=== PATIENT | male | born 1950 | race Caucasian/White ===

== ENCOUNTER 2016-11-02 | Inpatient (IN) | payer MEDICARE ==
--- NOTE | ~2016-11-02 | PA ---
Unit #: [id number] #: [id number] Patient: [facility]ARTHUR [id number] [facility] [address] [place] [address] [id number] MR#: [id number] NAME: MARY MCARTHUR ROOM: P180 Age: 66 Sex: M Admission Date: 11/02/2016 : 1950 Date of Assessment: Attending Physician: Ainsley Mccray M.D. Admitting Physician: Ainsley Mccray M.D. PSYCHIATRIC ASSESSMENT IDENTIFYING DATA Hector is a 66-year-old, , disabled, white male, who is known to us from previous encounter, is a resident of [place], [place] and was self-referred to the hospital on a voluntary basis. CHIEF COMPLAINT "I'm just tired a man. I'm detoxing. I'm just tired." HISTORY OF PRESENT ILLNESS Hector is a 66-year-old white male, who was self hospitalized and seemed to be unkempt, disheveled, anxious, withdrawn, in acute distress and discomfort, and he stated "I'm just ready to jump off a bridge." He reports that he is detoxing from heroin, stating that he has been using a gram of IV heroin on daily basis. The last use was 24 hours ago and reports currently having significant withdrawal symptoms with increasing anxiety, depression, irritability, restlessness, inability to function or perform activities of daily living, feelings of hopelessness and helplessness, and suicidal ideation, intent, and plan and as such, recommendation for inpatient level of care for safety and stabilization was made. SUBSTANCE ABUSE HISTORY The patient reports opioids particularly IV heroin to be his drug of choice and reports that he has been using a gram of IV heroin on daily basis. PAST PSYCHIATRIC HISTORY The patient has had history of multiple inpatient chemical dependency and psychiatric treatments at [facility]. Review of the medical records indicate that he has been diagnosed and treated for mood disorder, the line of bipolar and has been on Seroquel but has history of poor compliance at all forms of outpatient treatment. PAST MEDICAL HISTORY Asthma. ALLERGIES No known medication allergies. PERSONAL AND SOCIAL HISTORY A 66-year-old white male, who reports that he is single, unemployed, and homeless and has poor social support system. Unit #: [id number] #: [id number] Patient: MARY MCARTHUR MENTAL STATUS EXAMINATION An elderly white male, who was casually dressed with fair personal hygiene, appears to be in no acute distress or discomfort. He was awake and alert on interaction with intact orientation to time, place, and person. His mood was anxious and depressed with a congruent affect. His speech was slow and restricted in content. His thought processes were disorganized with some looseness of associations and flight of ideas and suicidal ideations. His insight and judgment remain significantly impaired. DIAGNOSTIC IMPRESSION Psychiatric: Depressive disorder, recurrent, moderate, without psychotic features. Opioid dependence: Moderate, and acute withdrawals. Medical: COPD. Stressors: Moderate, psychosocial stressors. TREATMENT PLAN 1. The patient has presented with history of substance abuse and mood disorder, and has been decompensating and will need inpatient hospitalization for detoxification, safety, and stabilization. We will start him back on his home medications. We will adjust the medications and monitor response. 2. Supportive therapy was provided to the patient. 3. Safe, structured, and nourishing environment will be reported. ESTIMATED LENGTH OF STAY 5 to 7 days. ABILITY TO HELP SELF Limited. WILLINGNESS TO HELP SELF The patient appears to be willing to help self. STRENGTHS 1. Communicative. 2. Cooperative. PROBLEM LIST 1. Chronic dysphoric symptoms. 2. Chronic chemical dependency. 3. Poor social support system. DISCHARGE CRITERIA This will be contingent upon the patient's ability to show resolution of his depression and anxiety and his ability to stay safe to himself, particularly after discharge from the hospital. Dictated by... Ainsley Mccray M.D. Unit #: [id number] #: [id number] Patient: MARY MCARTHUR IAA/modl TD: 11/02/2016 13:14 JOB #: [id number] PSYCHIATRIC ASSESSMENT Page 1 of 1 X Ainsley Mccray MD PSYCHIATRIC ASSESSMENT
--- NOTE | ~2016-11-02 | PN ---
Unit #: [id number] #: [id number] Patient: MARY YOUNG [id number] [facility] [address] [place] [address] [id number] MR#: [id number] NAME: MARY YOUNG ROOM: P180 Age: 66 Sex: M Admission Date: 11/02/2016 : 1950 Attending Physician: Ainsley Mccray M.D. Admitting Physician: Ainsley Mccray M.D. Primary Care Physician: Nalini Doctor Not In System [facility] PROGRESS NOTES DATE 11/04/2016 DISCUSSION Mr. Young is a 66-year-old, white male with opioid dependence and mood disorder who seen today and chart was reviewed and case was discussed with the staff. He was noticeably unkempt, disheveled, anxious, withdrawn, laying in his bed, and seclusive to himself unable to carry on meaningful conversation appears to be in some distress and discomfort as he goes through detox. Meanwhile he has been taking medications and tolerating them fairly well with no reported. MENTAL STATUS EXAM An elderly white male who was casually dressed with fair personal hygiene, appears to be in no acute distress or discomfort. He was awake and alert on interaction with intact orientation. His mood was anxious with congruent affect. His speech was slow and goal directed. He denies any current suicidal or homicidal ideation. Also, denies any auditory or visual hallucinations. His insight and judgement remains slightly impaired. TREATMENT PLAN 1. We will continue him on his current medications and treatment protocol (1) detox medication. We will monitor his response and make further adjustments as needed. 2. We will continue to follow up. Dictated by... Rashawn Marcus/rosalind TD: 11/05/2016 01:44 JOB #: [id number] Unit #: [id number] #: [id number] Patient: MARY YOUNG PROGRESS NOTES Page 1 of 1 X Ainsley Mccray MD X PROGRESS NOTE
--- NOTE | ~2016-11-02 | HP ---
Unit #: [id number] #: [id number] Patient: MARY MCARTHUR [id number] [place] [address] [id number] MR#: [id number] NAME: MARY MCARTHUR ROOM: P180 Age: 66 Sex: M Admission Date: 11/02/2016 : 1950 Attending Physician: Ainsley Mccray M.D. Admitting Physician: Ainsley Mccray M.D. Primary Care Physician: Generic Doctor Not In System HISTORY AND PHYSICAL HISTORY OF PRESENT ILLNESS The patient is a 66-year-old male, admitted to [facility] on 11/02/2016 to withdraw from heroin. PAST MEDICAL HISTORY 1. Chronic obstructive pulmonary disease. 2. Hepatitis C. PAST SURGICAL HISTORY Recent I and D of abscess on his spine. ALLERGIES No known drug allergies. SOCIAL HISTORY The patient is unemployed and homeless. He smokes [id number] cigarettes per day and uses one gram of heroin daily. FAMILY MEDICAL HISTORY Noncontributory. REVIEW OF SYSTEMS CONSTITUTIONAL: No fever or chills. HEENT: Denies any sore throat, ear pain or runny nose. CARDIOVASCULAR: Denies chest pain, irregular heart rhythm or palpitations. CHEST: Denies shortness of breath or cough. No hemoptysis. GASTROINTESTINAL: Denies nausea, vomiting, diarrhea or chronic constipation. ENDOCRINE: Denies history of increased thirst or urination. No recent significant weight loss or gain. GENITOURINARY: Denies dysuria, frequency, or hematuria. SKIN: Denies any rashes. HEMATOLOGIC: Denies history of increased bleeding or bruising. MUSCULOSKELETAL: Denies any hot, swollen joints. No generalized muscle pain. NEUROLOGIC: Denies problems with vision or speech. No frequent, severe headaches. No numbness, tingling or weakness in any extremities. Denies loss of bladder or bowel control. CURRENT MEDICATIONS Include: 1. Seroquel 2. Proventil Unit #: [id number] #: [id number] Patient: MARY MCARTHUR 3. Symbicort PHYSICAL EXAMINATION GENERAL: He is awake, alert, and oriented, and in no acute distress. VITAL SIGNS: Temperature 98.9, heart rate 83, respirations 18, and blood pressure 175/92. HEIGHT: 6 feet 0 inches. WEIGHT: 175 pounds. SKIN: He refused to let me examine his spine where he had an abscess removal. HEENT: Normocephalic. TMs not viewed. Oral and nasal passages clear. Conjunctivae clear. PERRLA. EOMs intact. NECK: Supple without lymphadenopathy or thyromegaly. HEART: Regular rate and rhythm without murmur. LUNGS: Clear. ABDOMEN: Soft, nontender. : Not done. EXTREMITIES: No evidence of cyanosis, clubbing or edema. Moves all without focal deficit. NEUROLOGICAL: Grossly within normal limits. Cranial Nerves: II: Visual stanford are intact. III, IV AND : Extraocular movements are intact. Pupils are equal, round and reactive to light. V: Facial sensation is grossly normal. VII: Facial movements and expression are normal. VIII: Auditory acuity grossly intact. IX, X: Uvula is midline. Phonation is normal. XI: Patient shrugs shoulders and turns head normally. XII: Tongue protrudes in the midline. Sensory and Motor Function: Sensory and motor sensation is grossly normal. Motor: moves all extremities well. Coordination: Gait is normal. Deep Tendon Reflexes: Intact. IMPRESSION 1. Psychiatric admission. 2. Heroin dependence. 3. Chronic obstructive pulmonary disease. 4. Hepatitis C. RECOMMENDATIONS Psychiatric, per psychiatrist. MEDICAL No contraindications to participating in facility's activities. MEDICAL PROGNOSIS Fair. MEDICAL CONDITION Stable. Dictated by... Radha Bowers/franc TD: 11/03/2016 05:51 Unit #: [id number] #: [id number] Patient: LYUBOVMARY JOB #: [id number] HISTORY AND PHYSICAL Page 1 of 1 X AILEEN DENTON APRN HISTORY AND PHYSICAL
--- NOTE | ~2016-11-02 | PN ---
Unit #: [id number] #: [id number] Patient: MARY YOUNG [id number] [facility] [address] [place] [address] [id number] MR#: [id number] NAME: MARY YOUNG ROOM: P180 Age: 66 Sex: M Admission Date: 11/02/2016 : 1950 Attending Physician: Ainsley Mccray M.D. Admitting Physician: Ainsley Mccray M.D. Primary Care Physician: Generic Doctor Not In System [facility] PROGRESS NOTES DATE OF SERVICE 11/07/2016 DISCUSSION Mr. Young is a 66-year-old white male with substance abuse and mood disorder who was seen today. Chart was reviewed and case was discussed with the staff. He has started getting agitated and irritable about wanting to leave, and this has been (1) __ behavioral pattern leading to relapses and poor outcomes. I told him that I was not comfortable with him leaving over the weekend, and he was not showing good insight into it and has been escalating to the point that I had to walk away from him. MENTAL STATUS EXAMINATION An elderly white male who is casually dressed with fair personal hygiene, appears to be in slight distress and discomfort. He was awake and alert on interaction with intact orientation. His mood is anxious with a congruent affect. Speech is slow and tangential. His insight and judgment remain significantly impaired. TREATMENT PLAN 1. We will continue him on his current medications and treatment protocol. We will monitor his response and make further adjustments as needed. 2. We will continue to follow up. Dictated by... Rashawn Marcus/roberto TD: 11/07/2016 13:19 JOB #: [id number] Unit #: [id number] #: [id number] Patient: MARY YOUNG [facility] PROGRESS NOTES Page 1 of 1 X Ainsley Mccray MD PROGRESS NOTE
--- NOTE | ~2016-11-02 | DS ---
Unit #: [id number] #: [id number] [facility]: [facility] [id number] [facility] [address] [place] [address] [id number] I MR#: [id number] NAME: MARY YOUNG ROOM: P174 Age: 66 Sex: M Admission Date: 11/02/2016 : 1950 Discharge Date: 11/09/2016 Attending Physician: Ainsley Mccray M.D. Primary Care Physician: Generic Doctor Not In System DISCHARGE SUMMARY IDENTIFYING DATA Mr. Young is a 66-year-old disabled white male who is known to us from previous encounter, is a resident of [place], [place] and was self-referred to the hospital on a voluntary basis. DISCHARGE DIAGNOSES Psychiatric: Major depressive disorder, recurrent, moderate, without psychotic features; opioid dependence, moderate and acute withdrawals. Medical: Chronic obstructive pulmonary disease. Stressors: Moderate psychosocial stressors. HISTORY OF PRESENT ILLNESS Please see initial psychiatric evaluation for details. PAST PSYCHIATRIC HISTORY Please see initial psychiatric evaluation for details. PAST MEDICAL HISTORY Please see initial psychiatric evaluation for details. HOSPITAL COURSE The patient was admitted to the adult chemical dependency unit at [facility] and was oriented to the hospital environment. Routine p.r.n. medications were initiated, and he was started on opioid detox protocol and was closely monitored. He was seen to be anxious and withdrawn for the first few days, he was rather seclusive to himself and was not actively participating much in treatment related activities and then he started coming out. Reported that he was feeling better and was insistent about wanting to go out and was refusing to accept any further treatment recommendations and was denying being a danger to self or anyone else and was not meeting criteria for involuntary psychiatric hospitalization, and as such, it was decided that he will be discharged home and will continue treatment on an outpatient basis. DISCHARGE MEDICATIONS None. DISCHARGE CONDITION Stable. PROGNOSIS Guarded. Unit #: [id number] #: [id number] Patient: MARY YOUNG Dictated by... Rashawn Marcus/wilil TD: 11/09/2016 22:59 JOB #: [id number] DISCHARGE SUMMARY Page 1 of 1 X Ainsley Mccray MD DISCHARGE SUMMARY
--- NOTE | ~2016-11-02 | PN ---
Unit #: [id number] #: [id number] Patient: MARY YOUNG [id number] [facility] [address] [place] [address] [id number] I MR#: [id number] NAME: MARY YOUNG ROOM: P174 Age: 66 Sex: M Admission Date: 11/02/2016 : 1950 Attending Physician: Ainsley Mccray M.D. Admitting Physician: Ainsley Mccray M.D. Primary Care Physician: Generic Doctor Not In System [facility] PROGRESS NOTES DATE OF SERVICE: 11/08/2016 SUBJECTIVE Mr. Young is a 66-year-old white male, who was seen today and chart was reviewed, and case was discussed with the staff. He has been anxious, withdrawn, rather seclusive to himself, though has been calm and cooperative and appears to be coming out of the detox without any complications and he has been taking medications and tolerating them fairly well with no reported side effects. MENTAL STATUS EXAMINATION Elderly white male who was casually dressed with fair personal hygiene, appears to be in no acute distress or discomfort. He was awake and alert on interaction with intact orientation. His mood was anxious with a congruent affect. He denies any suicidal or homicidal ideations. His insight and judgment remain slightly impaired. TREATMENT PLAN 1. We will continue him on his current treatment protocol. We will monitor his response to the medications and make further adjustments as needed. 2. We will continue to follow up. Dictated by... Rashawn Marcus/miguel TD: 11/10/2016 01:17 JOB #: [id number] [facility] PROGRESS NOTES Page 1 of 1 X Ainsley Mccray MD PROGRESS NOTE
--- NOTE | ~2016-11-02 | PN ---
Unit #: [id number] #: [id number] Patient: MARY YOUNG [id number] [facility] [address] [place] [address] [id number] MR#: [id number] NAME: MARY YOUNG ROOM: P180 Age: 66 Sex: M Admission Date: 11/02/2016 : 1950 Attending Physician: Ainsley Mccray M.D. Admitting Physician: Ainsley Mccray M.D. Primary Care Physician: Nalini Doctor Not In System [facility] PROGRESS NOTES DATE 11/06/2016 DISCUSSION Mr. Young is a 66-year-old white male with substance abuse and mood disorder who was seen today and chart was reviewed and case was discussed with the staff. He appears to be doing somewhat better and has been coming out of his room more and appears to be coming out of the detox without much complications. He has been taking medications and tolerating them fairly well with no reported side effects. MENTAL STATUS EXAMINATION An elderly white male who was casually dressed with fair personal hygiene and appears to be in no acute distress or discomfort. He was awake and alert on interaction with intact orientation. His mood was anxious with congruent affect. He denies any suicidal or homicidal ideation and also denies any auditory or visual hallucinations. His insight and judgement remains slightly impaired. TREATMENT PLAN 1. Will continue on his current medications and treatment protocol. Will monitor his response to the medications and make further adjustments as needed. 2. Will continue to follow up. Dictated by... Rashanw Marcus/lisbeth TD: 11/06/2016 15:37 JOB #: [id number] Unit #: [id number] #: [id number] Patient: MARY YOUNG [facility] PROGRESS NOTES Page 1 of 1 X Ainsley Mccray MD PROGRESS NOTE
--- NOTE | ~2016-11-02 | PN ---
Unit #: [id number] #: [id number] Patient: MARY YOUNG [id number] [facility] [address] [place] [address] [id number] MR#: [id number] NAME: MARY YOUNG ROOM: P180 Age: 66 Sex: M Admission Date: 11/02/2016 : 1950 Attending Physician: Ainsley Mccray M.D. Admitting Physician: Ainsley Mccray M.D. Primary Care Physician: Nalini Doctor Not In System [facility] PROGRESS NOTES DATE OF SERVICE 11/05/2016 DISCUSSION Mr. Young is a 66-year-old white male who was seen today. Chart was reviewed and case was discussed with the staff. He has been anxious, withdrawn though has not shown any agitation or irritability and has been cooperative with the treatment recommendations and has been taking the medications and tolerating them fairly well with no reported side effects. MENTAL STATUS EXAMINATION An elderly white male who is casually dressed with fair personal hygiene and appears to be in no acute distress or discomfort. The patient was awake and alert on interaction with intact orientation. His mood is anxious and depressed with congruent affect. He denies any suicidal or homicidal ideations. His insight and judgment remain slightly impaired. TREATMENT PLAN 1. We will continue him on his current medications and treatment protocol. We will monitor his response to the medications and make further adjustments as needed. 2. We will continue to follow up. Dictated by... Ainsley Mccray M.D. IAA/bzg TD: 11/05/2016 11:40 JOB #: [id number] [facility] PROGRESS NOTES Page 1 of 1 X Ainsley Mccray MD PROGRESS NOTE
--- NOTE | ~2016-11-02 | PN ---
Unit #: [id number] #: [id number] Patient: MARY YOUNG [id number] [facility] [address] [place] [address] [id number] MR#: [id number] NAME: MARY YOUNG ROOM: P180 Age: 66 Sex: M Admission Date: 11/02/2016 : 1950 Attending Physician: Ainsley Mccray M.D. Admitting Physician: Ainsley Mccray M.D. Primary Care Physician: Nalini Doctor Not In System [facility] PROGRESS NOTES DATE 11/03/2016 DISCUSSION Mr. Young is a 66-year-old, white male with opioid dependence and mood disorder who was seen today and chart was reviewed and case was discussed with the staff. He remains anxious, withdrawn, unkempt, disheveled, disorganized and seclusive to himself unable to carry on meaningful conversation though has been able to perform activities of daily living (1) to his personal hygiene and appears to be (2) detox. Meanwhile, he has been taking the medication and tolerating them fairly well with no reported side effects. MENTAL STATUS EXAM Elderly white male who was casually dressed with marginal personal hygiene, appears to be in distress and discomfort. He was awake and alert with impaired attention and concentration. His mood was anxious with congruent affect. His speech was slow and restricted in content. His thought process was disorganized with some looseness of associations and flight of ideas. His insight and judgement remains significantly impaired. TREATMENT PLAN 1. We will continue him on his current medications and treatment protocol. We will monitor his response to the medication and make further adjustments as needed. 2. We will continue to follow up. Dictated by... Rashawn Marcus/rosalind TD: 11/04/2016 00:15 JOB #: [id number] Unit #: [id number] #: [id number] Patient: MARY YOUNG [facility] PROGRESS NOTES Page 1 of 1 X Ainsley Mccray MD X PROGRESS NOTE
[2016-11-02 12:21] LABS: BASOPHIL# 0.1 X10e3 (0-0.3); BASOPHIL% 0.6 % (0-2.5); EOSINOPHIL# 0.2 X10e3 (0-0.7); EOSINOPHIL% 1.9 % (0.0-7.0); HEMATOCRIT 42.5 % (38.0-50.0); HEMOGLOBIN 13.6 gm/dL (13.0-16.0); LYMPHOCYTE# 2.5 X10e3 (1.0-3.5); LYMPHOCYTE% 31.9 % (17.0-45.0); MEAN CELL VOLUME 86.6 FL (83-96); MEAN CORPUSCULAR HEMOGLOBIN 27.8 PG (28-34); MEAN CORPUSCULAR HGB CONC 32.1 g/dL (30-36); MEAN PLATELET VOLUME 7.9 FL (6.5-11.5); MONOCYTE# 0.7 X10e3 (0-1.0); MONOCYTE% 8.3 % (3.0-12.0); NEUTROPHIL# 4.5 X10e3 (1.5-7.1); NEUTROPHIL% 57.3 % (40-75); PLATELET COUNT 296 X10e3 (140-420); RED CELL DISTRIBUTION WIDTH 14.8 % (11.0-15.5); WHITE BLOOD COUNT 7.9 X10e3 (4.0-10.5)
[2016-11-02 12:30] LABS: DIFF IND NO
[2016-11-02 13:03] LABS: ALBUMIN SERUM 3.3 g/dL (3.5-5.0); BILIRUBIN,TOTAL 0.8 mg/dL (0.2-2.0); BUN/CREATININE RATIO 11.42; CALCIUM SERUM 8.8 mg/dL (8.4-10.2); CREATININE SERUM 0.7 mg/dL (0.6-1.4); GLOM FILT RATE Estimated 99.1 mL/min (>60); POTASSIUM 4.3 mmol/L (3.5-5.1); PROTEIN TOTAL SERUM 6.3 g/dL (6.0-8.3); THYROID STIMULATING HORMONE 2.17 uIU/ml (0.34-5.60)
[2016-11-02 13:10] LABS: FREE THYROXIN (T4) 0.85 ng/dL (0.58-1.64)
[2016-11-06 09:42] LABS: URINE APPEARANCE CLEAR; URINE BILIRUBIN NEG (NEG); URINE BLOOD NEG (NEG); URINE COLOR YELLOW; URINE GLUCOSE NEG (NEG); URINE KETONE NEG (NEG); URINE LEUKOCYTE ESTERASE NEG (NEG); URINE NITRATE NEG (NEG); URINE PH 6.5 (5-8); URINE PROTEIN NEG (NEG); URINE SPECIFIC GRAVITY 1.013 (1.003-1.035); URINE UROBILINOGEN 0.2 MG/DL (NEG)
[2016-11-06 11:01] LABS: AMPHETAMINE NEG (NEG); BARBITURATES NEG (NEG); BENZODIAZEPINES NEG (NEG); COCAINE NEG (NEG); MARIJUANA NEG (NEG); OPIATES NEG (NEG); TRICYCLIC ANTIDEPRESSANTS NEG (NEG); U METHADONE NEG (NEG)
== END 2016-11-09 09:30 | disposition home or self-care (01) | DRG 885 ==
LOC: P1E 01:43
PROVIDERS: Psychiatry & Neurology Psychiatry
PROC: HZ2ZZZZ Detoxification Services for Substance Abuse Treatment (ICD-10-PCS; principal; 2016-11-02)
DX: F33.1 Major depressive disorder, recurrent, moderate (principal); R45.851 Suicidal ideations; J44.9 Chronic obstructive pulmonary disease, unspecified; F11.23 Opioid dependence with withdrawal; Z86.19 Personal history of other infectious and parasitic diseases; F17.210 Nicotine dependence, cigarettes, uncomplicated; Z59.0 Homelessness
CPT/HCPCS: 80053; 80307; 81003; 84439; 84443; 85025; 86592